=== PATIENT | female | born 1945 | race Hispanic/Latino ===

== ENCOUNTER 2019-06-14 03:15 | Inpatient (IN) | payer MEDICARE ==
[2019-06-14] VITALS (9 sets, daily range): BP systolic 125–167; BP diastolic 65–81
[~2019-06-14] VITALS: Ht 152.4 cm; Wt 66.7 kg
[2019-06-14] MEDS ORDERED: ASPIRIN 81 MG CHEW TAB PO ONE ×2 (03:30→04:45)
[2019-06-14] MEDS ORDERED: PANTOPRAZOLE 40 MG 10ML VIAL IV STA (03:37)
[2019-06-14] MEDS ORDERED: NITROGLYCERIN 2% OINT 1 GM PKT ONE (03:38)
[2019-06-14] MEDS ORDERED: ONDANSETRON HCL INJ 2MG/ML 2ML 2 MG/ML VIAL IV STA (03:39)
[2019-06-14] MEDS ORDERED: ONDANSETRON HCL INJ 2MG/ML 2ML 2 MG/ML VIAL ONE (03:39)
[2019-06-14 03:44] LABS: BASOPHILS % 0.3 % (0.0-1.0); EOSINOPHILS # (AUTO) 0.2 (0.0-0.4); EOSINOPHILS % 2.9 % (0.0-6.0); HEMATOCRIT 38.4 % (34.2-44.1); HEMOGLOBIN 12.6 g/dL (12.0-16.0); LYMPHOCYTES # (AUTO) 2.3 (1.0-3.2); LYMPHOCYTES % 31.5 % (18.0-39.1); MEAN CORPUSCULAR HEMOGLOBIN 30.8 pg (28-32); MEAN CORPUSCULAR HGB CONC 32.8 g/dL (31-35); MEAN CORPUSCULAR VOLUME 93.9 fL (81-99); MONOCYTES # (AUTO) 0.5 (0.2-0.8); MONOCYTES % 6.8 % (4.4-11.3); NEUTROPHILS # (AUTO) 4.3 (2.1-6.9); NEUTROPHILS % 58.2 % (38.7-80.0); PLATELET COUNT 220 x10e3/uL (140-360); RED BLOOD COUNT 4.09 x10e6/uL (3.6-5.1); RED CELL DISTRIBUTION WIDTH 12.2 % (11.7-14.4)
[2019-06-14] MEDS ORDERED: NITROGLYCERIN 2% OINT 1 GM PKT TOP ONE (03:45)
[2019-06-14] MEDS ORDERED: ASPIRIN 81 MG CHEW TAB ONE (03:46)
[2019-06-14] MEDS ORDERED: PANTOPRAZOLE 40 MG 10ML VIAL ONE (03:46)
[2019-06-14 03:58] LABS: INR 0.81; PROTHROMBIN TIME 11.6 seconds (11.9-14.5)
[2019-06-14 03:59] LABS: PARTIAL THROMBOPLASTIN TIME 25.8 seconds (23.8-35.5)
[2019-06-14 04:09] LABS: ALANINE AMINOTRANSFERASE 27 IU/L (0-55); ALBUMIN 3.7 g/dL (3.5-5.0); ALBUMIN/GLOBULIN RATIO 1.2 (0.8-2.0); ALKALINE PHOSPHATASE 72 IU/L (40-150); ANION GAP 14.4 mmol/L (8-16); BLOOD UREA NITROGEN 22 mg/dL (7-26); BUN/CREATININE RATIO 28 (6-25); CARBON DIOXIDE 23 mmol/L (22-29); CHLORIDE 105 mmol/L (98-107); CREATINE KINASE 50 IU/L (29-168); CREATININE, SERUM 0.78 mg/dL (0.57-1.11); EST GLOMERULAR FILTRATION RATE > 60 ML/MIN (60-); GLUCOSE 111 mg/dL (74-118); POTASSIUM 3.4 mmol/L (3.5-5.1); SODIUM 139 mmol/L (136-145)
[2019-06-14 04:10] LABS: AMYLASE 73 U/L (25-125); LIPASE 40 U/L (8-78)
[2019-06-14] MEDS ORDERED: HEPARIN SOD (PORCINE) 5,000 UNIT/ML VIAL IV ONE (04:15)
[2019-06-14] MEDS ORDERED: HEPARIN 25,000 UNIT 600 UNIT in DEXTROSE 5% 250ML 250 ML IV SCH ×2 (04:15→06:00)
[2019-06-14 04:34] LABS: CREATINE KINASE MB < 1.00 ng/mL (0-4.3)
[2019-06-14] MEDS: FAMOTIDINE 20 MG/2 ML VIAL IV SCH ×2 (04:45→17:26)
[2019-06-14] MEDS ORDERED: NITROGLYCERIN 0.4 MG SUBL SL PRN (04:45)
[2019-06-14] MEDS ORDERED: SODIUM CHLORIDE FLUSH 10 ML SYR INJ PRN (04:45)
--- NOTE | 2019-06-14 05:13 | Diagnostic Imaging Report ---
EXAMINATION: CHEST SINGLE (PORTABLE) INDICATION: Chest pain COMPARISON: None FINDINGS: AP view TUBES and LINES: None. LUNGS: Lungs are well inflated. Lungs are clear. There is no evidence of pneumonia or pulmonary edema. PLEURA: No pleural effusion or pneumothorax. HEART AND MEDIASTINUM: The cardiomediastinal silhouette is unremarkable. BONES AND SOFT TISSUES: No acute osseous lesion. Soft tissues are unremarkable. Degenerative changes in the shoulders and spine. UPPER ABDOMEN: No free air under the diaphragm. IMPRESSION: No acute thoracic radiographic abnormality. Signed by: Sami Duff DO on 06/14/2019 5:09 AM
[2019-06-14] MEDS ORDERED: HEPARIN 25,000 UNIT DRIP IV ONE (06:05)
[2019-06-14] MEDS: ASPIRIN 81 MG ENTERIC COATED PO SCH (06:20)
--- NOTE | 2019-06-14 06:30 | NUR ---
RECEIVED PATIENT FROM EMERGENCY ROOM PER STRETCHER, HEPARIN INFUSING AT 6UNITS PER HOUR, CALL LIGHT IN REACH. WILL CONTINUE TO MONITOR.
--- NOTE | 2019-06-14 07:16 | NUR ---
REPORT GIVEN TO AM NURSE.
[2019-06-14] MEDS ORDERED: POTASSIUM CHLORIDE 20 MEQ TAB CR PO STA (11:21)
[2019-06-14] MEDS ORDERED: REGADENOSON 0.4 MG/5 ML SYR IV ONE ×2 (12:27→12:40)
--- NOTE | 2019-06-14 12:46 | History and Physical ---
REPORT TITLE: Cardiac Consultation BODY AFTER REPORT TITLE: REASON FOR CONSULTATION: Chest pain. HISTORY: This is a 73-year-old lady, who is known with longstanding history of hypercholesteremia, on treatment. Yesterday, she had heavy dinner and after that she started having severe lower retrosternal chest pain associated with nausea, she vomited one. The chest pain was sharp, but also colicky in nature. The chest pain was very severe. She came to the emergency room. Her EKG showed left bundle branch block with first-degree AV block, admitted for further management, started on heparin, aspirin, and cardiac consultation is obtained. I visited with the patient and her daughter at bedside. In fact, the daughter who is the one who helped me talking to her mother. The patient is relatively active. She still does work and with activity she does have some shortness of breath, but no chest tightness. Of note, the patient is very poor historian. There is no prior cardiac disease, although her brother had stent and her mother of congestive heart failure. She does have easy fatigability and shortness of breath on exertion. There is no orthopnea, no paroxysmal nocturnal dyspnea, however, easy fatigability and shortness of breath on exertion relieved by rest. There is no syncope or presyncope. REVIEW OF SYSTEMS: Extensive to all systems, will be summarized for clarity. GENERAL: No fever, no chills. HEENT: No vision problem. No hearing problem. PULMONARY: No cough. No hemoptysis. CARDIAC: As per acute illness. GI: As per acute illness. No hematemesis. No melena. : No hematuria. No dysuria. MUSCULOSKELETAL: No pain. No aches. ENDOCRINE: No diabetes mellitus. HEMATOLOGY: No easy bruising or bleeding. SOCIAL HISTORY: She lives with her son whom she is really truly taking care of him, he had stroke. She is nonsmoker and non-alcohol drinker. She is a . MEDICATIONS: Home medications are atorvastatin 20 mg a day and bupropion 150 mg twice a day. ALLERGIES: NONE. PAST MEDICAL HISTORY: 1. Appendectomy. 2. Hysterectomy. 3. Left hand fracture and surgery x3. 4. Depression. 5. Hyperlipidemia. FAMILY HISTORY: Father at age 72 with leukemia. Mother of complication of congestive heart failure, but at age 86, she was diabetic. One brother already with stent in his 60s. Two healthy sisters. Two sons, one of the sons with CVA. Two healthy daughters. PHYSICAL EXAMINATION: GENERAL: Well-built lady, in no acute distress, pain disappeared having heparin drip. VITAL SIGNS: Height of 5 feet 2 inches, weight of 135 pounds, blood pressure 130/70, heart rate of 60, respiratory rate of 18. HEENT: Pupils are equal and reactive. NECK: No elevation of jugular venous pulsation. CHEST: Clear to auscultation and percussion. Heart: PMI 5th left intercostal space. Normal first and second heart sounds. ABDOMEN: Soft with good bowel sounds. No organomegaly. No abdominal bruit. Mild tenderness noted in the lower abdomen and right lower quadrant. Bowel sounds are present. No abdominal bruit. EXTREMITIES: No cyanosis, no clubbing, no edema. No signs of deep venous thrombosis. Good distal pulses. There is a little bit of left hand deformity, decreased left radial pulse. NEUROLOGIC: Awake, alert, oriented, and nonfocal. LABORATORY DATA: Sodium of 139, potassium 3.4, BUN 22, creatinine of 0.8. INR of 0.8, glucose of 111. Chest x-ray by report normal. EKG showing normal sinus rhythm, first-degree AV block, left bundle branch block. IMPRESSION AND PLAN: 1. Chest pain was typical, but more atypical characteristic. 2. Hypercholesteremia. 3. Left bundle branch block. 4. Positive family history of coronary artery disease. Cardiac ewing recommendation serial cardiac enzymes, schedule patient for nuclear stress test in view of the presence of left bundle branch block on the EKG if cardiac enzymes are negative. Workup and management discussed with the patient and her family. Questions are answered. MD TREVA Greenwood/JESSE /[id number]
--- NOTE | 2019-06-14 13:50 | NUR ---
Visit made by the Spiritual Care Department Pastoral Visitor, Kay Hancock. PV provided pastoral presence, prayer, hospitality, and supportive listening. Pastoral Visitor informed pt/family of the scope of [employer] and availability. PAPA GALAVIZ Social Science Instructor Spiritual Care Department O: [phone] Pager: [phone] ([phone] number calling from)
--- NOTE | 2019-06-14 14:42 | Diagnostic Imaging Report ---
EXAM: Right upper quadrant abdominal ultrasound INDICATION: Right upper quadrant pain COMPARISON: None. TECHNIQUE: Transverse and longitudinal images of the right upper quadrant abdomen were obtained FINDINGS: Liver: Size: 14.9 cm in the right midclavicular line, normal Appearance: Normal echogenicity, smooth contour Mass: No focal masses Gallbladder: 7 mm and 13 mm gallstones within the gallbladder. No gallbladder wall thickening, pericholecystic fluid, or gallbladder distention. Negative reported sonographic Zepeda's sign. Gallbladder wall measures 2 mm . Bile Ducts: Intrahepatic Ducts: No dilatation Extrahepatic Ducts: Common bile duct measures 3 mm, no dilatation Pancreas: Visualized portions of the pancreatic head, neck and proximal body are normal. Kidney: The right kidney measures 9.8 cm without evidence of hydronephrosis or stone. Vessels: Aorta: Visualized portions are normal Inferior Vena Cava: Visualized portions are normal Main Portal Vein: 0.9 cm, normal size with hepatopetal flow. Free Fluid: No ascites or pleural effusion IMPRESSION: Cholelithiasis. No specific sonographic evidence of cholecystitis. Signed by: Fady Walton MD on 06/14/2019 2:39 PM
[2019-06-14] MEDS ORDERED: POTASSIUM CHLORIDE 20 MEQ TAB CR PO NR (14:45)
[2019-06-14] MEDS: AMLODIPINE BESYLATE 5 MG TAB PO SCH (14:53)
[2019-06-14 15:22] LABS: CREATINE KINASE 43 IU/L (29-168)
--- NOTE | 2019-06-14 18:03 | History and Physical ---
HISTORY OF PRESENT ILLNESS: The patient is a 73-year-old female with past medical history positive for hypertension. The patient is admitted to the hospital because of chest pain. REVIEW OF SYSTEMS: CARDIOVASCULAR: Chest pain. No shortness of breath. RESPIRATORY: No shortness of breath. No cough. GASTROINTESTINAL: No nausea or vomiting. No diarrhea. GENITOURINARY: No frequency or dysuria. ALLERGIES: NOT ALLERGIC TO ANYTHING. PAST MEDICAL HISTORY: Only positive for hypertension. SOCIAL HISTORY: She does not smoke. She does not drink. PHYSICAL EXAMINATION: VITAL SIGNS: Blood pressure 167/81, temperature is 96.4, heart rate 67 per minute, respiratory rate 18 per minute, O2 saturation 99%. HEART: Showed regular rhythm. Normal S1, S2 sound. LUNGS: Clear bilaterally. ABDOMEN: Soft. EXTREMITIES: Show no evidence of cyanosis or hematoma. LABORATORY DATA: On the blood work, we have a PT 11.6, INR 0.81, PTT 25.8. On the CBC; white blood count 7.36, hematocrit 38.4, hemoglobin 12.6, platelet count 220,000. On the CMP; sodium 139, potassium 3.4, chloride 105, CO2 of 23, BUN 22, creatinine 0.78, glucose 111, calcium 9.0, total bilirubin 0.1, AST 54, ALT 27, alkaline phosphatase 72, creatine kinase 56, CK-MB 1.00. Troponin x2 is negative. Total protein 6.8, albumin 3.7, globulin 3.1, albumin globin ratio 1.2. Chest x-ray is negative for any significant cardiopulmonary abnormalities. IMPRESSION: 1. Episode of chest pain. 2. Hypertension. 3. Hypokalemia. 4. Elevated LFTs. PLAN OF TREATMENT: The patient is on heparin drip. She is taking aspirin 81 mg daily. She is taking Pepcid 20 mg IV twice a day. She is taking morphine 2 mg IV q.3 hours as needed for [id number] pain. She is taking also a nitroglycerin 0.4 mg sublingual q.5 minutes for chest pain no more than three doses, Zofran 4 mg IV q.4 hours as needed for nausea and vomiting. Cardiology consult Dr. Rosales. He is going to do an adenosine Cardiolite stress test today and then we will go from there. Potassium has been replaced with 40 mEq p.o. x1. I am going to repeat a BMP, magnesium levels tomorrow. Repeat LFTs tomorrow. MD DM Howell/JESSE /[id number]
--- NOTE | 2019-06-14 19:35 | Myoview Stress Test ---
DATE OF STUDY: 06/14/2019 10:17:00 Stress Test - Treadmill ONLY TITLE OF REPORT: Lexiscan nuclear stress test. INDICATION FOR STUDY: Chest pain and abnormal EKG. TECHNICAL DETAILS: After risks, benefits, pros and cons of Lexiscan nuclear stress test were explained to the patient, the patient agreed to proceed. She was brought down to the nuclear lab, where she received an 11 millicurie dose of technetium-99m tetrofosmin intravenously and after 40 minutes, the patient was taken to the [facility] SPECT camera for resting myocardial perfusion imaging. Afterwards, the patient was then brought to the stress lab, where 12-lead EKG monitoring and blood pressure monitoring were obtained. She received a dose of Lexiscan 0.4 mg intravenously followed by a 33 millicurie dose of technetium-99m tetrofosmin intravenously. Resting heart rate went from a baseline of 64 beats per minute to a maximum of 78 beats per minute, and blood pressure went from a baseline of 146/71 to 133/57, which is an appropriate hemodynamic response. Underlying EKG revealed normal sinus rhythm, nonspecific intraventricular conduction block and nonspecific ST-T wave changes. With Lexiscan infusion, there were no ischemic EKG changes or symptoms. After 25 minutes, the patient was then taken to the SPECT camera for stress myocardial perfusion imaging. FINDINGS: 1. Resting myocardial perfusion imaging reveals normal tracer uptake. 2. Stress myocardial perfusion imaging reveals normal tracer uptake. 3. The following gated measurements were obtained. End-diastolic volume was 54 mm, end-systolic volume 14 mm, calculated left ventricular ejection fraction is 74% with normal wall motion. CONCLUSIONS: 1. Normal myocardial perfusion imaging study revealing normal tracer uptake and no scintigraphic areas of ischemia. 2. Normal left ventricular function with calculated ejection fraction of 74%. 3. Overall findings of the stress test are compatible with a low risk stress test. MD PABLO Chau/JESSE /[id number]
[2019-06-14 20:26] LABS: CREATINE KINASE 36 IU/L (29-168)
[2019-06-15] MEDS: FAMOTIDINE 20 MG/2 ML VIAL IV SCH ×2 (03:47→17:12)
[2019-06-15 04:00] VITALS: BP 152/68
[2019-06-15 05:21] LABS: ANION GAP 12.4 mmol/L (8-16); BLOOD UREA NITROGEN 19 mg/dL (7-26); BUN/CREATININE RATIO 22 (6-25); CALCIUM 9.5 mg/dL (8.4-10.2); CARBON DIOXIDE 25 mmol/L (22-29); CHLORIDE 106 mmol/L (98-107); CREATININE, SERUM 0.87 mg/dL (0.57-1.11); EST GLOMERULAR FILTRATION RATE > 60 ML/MIN (60-); GLUCOSE 105 mg/dL (74-118); POTASSIUM 4.4 mmol/L (3.5-5.1); SODIUM 139 mmol/L (136-145)
[2019-06-15 05:48] LABS: CHOL/HDL RATIO 3.6 (3.0-3.6)
[2019-06-15 07:26] VITALS: BP 113/69
[2019-06-15] MEDS ORDERED: ACETAMINOPHEN 325 MG TAB PO PRN (09:30)
[2019-06-15] MEDS: ASPIRIN 81 MG ENTERIC COATED PO SCH (09:34)
[2019-06-15] MEDS: AMLODIPINE BESYLATE 5 MG TAB PO SCH (09:34)
[2019-06-15 10:02] LABS: ALBUMIN 3.6 g/dL (3.5-5.0); BILIRUBIN,DIRECT 0.1 mg/dL (0.0-0.5)
--- NOTE | 2019-06-15 11:10 | NUR ---
ASSESSMENT: Spiritual concern Pt worried about her daughter. Pt's daughter at bedside. Pt requested prayer and prayer cards. Intervention: Provided empathic listening and prayer. Outcome: Pt & daughter expressed appreciation for visit. Will follow as able. PAPA GALAVIZ Cloth Covered Helmet Puller Spiritual Care Department O: [phone] Pager: [phone] ([phone] number calling from)
[2019-06-15 11:20] VITALS: BP 165/88
--- NOTE | 2019-06-15 11:35 | Progress Note ---
DATE: Internal Medicine Progress Note SUBJECTIVE: The patient had a normal adenosine Cardiolite stress test with no evidence of ischemia, but the patient has been having right upper quadrant pain with nausea, abdominal distention after she eats. Bladder ultrasound ordered by Dr. Charles showed gallstones, which are symptomatic. Also, we are going to call Dr. Don Shahid, surgeon, to do evaluation for a possible laparoscopic cholecystectomy. PHYSICAL EXAMINATION: HEART: Showed regular rhythm, normal S1, S2 sound. LUNGS: Clear bilaterally. ABDOMEN: Soft. EXTREMITIES: Show no evidence of cyanosis or hematoma. IMPRESSION: 1. Chest pain. 2. Hypertension. 3. Hypokalemia. 4. Elevated LFTs. 5. Acute cholecystitis. PLAN OF TREATMENT: Continue with current medication regimen. We are going to continue pain management. Continue monitoring liver function test. We are going to get a surgical consult with Dr. Don Shahid for possible cholecystectomy. MD DM Howell/JESSE /[id number]
[2019-06-15] MEDS: MORPHINE SULFATE 2 MG/ML SYR 1ML IV PRN ×3 (13:46→23:06)
[2019-06-15 15:25] VITALS: BP 119/65
[2019-06-15] MEDS: PIPER-TAZ 3.375 GM 50 ML IV SCH ×2 (18:29→23:30)
[2019-06-15] MEDS: SODIUM CHLORIDE 0.9% 1000ML 1,000 ML IV SCH (18:29)
[2019-06-15] MEDS: PANTOPRAZOLE 40 MG 10ML VIAL IV SCH (18:29)
[2019-06-15 20:00] VITALS: BP 118/73
--- NOTE | 2019-06-15 21:10 | NUR ---
received report from night nurse. patient is resting comfortably in the bed. bed is in the lowest position and call light is within reach. will continue to monitor patient.
[2019-06-15 21:30] VITALS: BP 118/73
[2019-06-15] MEDS: ONDANSETRON HCL INJ 2MG/ML 2ML 2 MG/ML VIAL IV PRN (23:07)
[2019-06-16] VITALS: BP 124/70
[2019-06-16 04:00] VITALS: BP 143/70
[2019-06-16] MEDS: FAMOTIDINE 20 MG/2 ML VIAL IV SCH ×2 (05:11→18:02)
[2019-06-16] MEDS: PIPER-TAZ 3.375 GM 50 ML IV SCH ×4 (05:11→23:30)
[2019-06-16] MEDS: SODIUM CHLORIDE 0.9% 1000ML 1,000 ML IV SCH ×2 (05:11→14:02)
[2019-06-16 05:47] LABS: BASOPHILS % 0.4 % (0.0-1.0); EOSINOPHILS # (AUTO) 0.2 (0.0-0.4); EOSINOPHILS % 3.2 % (0.0-6.0); HEMATOCRIT 38.7 % (34.2-44.1); HEMOGLOBIN 12.5 g/dL (12.0-16.0); LYMPHOCYTES # (AUTO) 2.2 (1.0-3.2); LYMPHOCYTES % 37.7 % (18.0-39.1); MEAN CORPUSCULAR HEMOGLOBIN 30.5 pg (28-32); MEAN CORPUSCULAR HGB CONC 32.3 g/dL (31-35); MEAN CORPUSCULAR VOLUME 94.4 fL (81-99); MONOCYTES # (AUTO) 0.4 (0.2-0.8); MONOCYTES % 7.5 % (4.4-11.3); NEUTROPHILS # (AUTO) 2.9 (2.1-6.9); NEUTROPHILS % 50.8 % (38.7-80.0); PLATELET COUNT 222 x10e3/uL (140-360); RED CELL DISTRIBUTION WIDTH 12.2 % (11.7-14.4)
[2019-06-16 06:06] LABS: ALANINE AMINOTRANSFERASE 119 IU/L (0-55); ALBUMIN 3.3 g/dL (3.5-5.0); ALBUMIN/GLOBULIN RATIO 1.1 (0.8-2.0); ALKALINE PHOSPHATASE 69 IU/L (40-150); AMYLASE 70 U/L (25-125); ANION GAP 13.7 mmol/L (8-16); BLOOD UREA NITROGEN 14 mg/dL (7-26); BUN/CREATININE RATIO 18 (6-25); CALCIUM 8.9 mg/dL (8.4-10.2); CARBON DIOXIDE 25 mmol/L (22-29); CHLORIDE 104 mmol/L (98-107); CREATININE, SERUM 0.78 mg/dL (0.57-1.11); EST GLOMERULAR FILTRATION RATE > 60 ML/MIN (60-); GLUCOSE 91 mg/dL (74-118); POTASSIUM 4.7 mmol/L (3.5-5.1); SODIUM 138 mmol/L (136-145)
--- NOTE | 2019-06-16 07:08 | NUR ---
report given to day nurse. patient is resting comfortably in bed. bed is in lowest position and call martinez is within reach.
[2019-06-16 07:37] VITALS: BP 136/79
[2019-06-16] MEDS: ASPIRIN 81 MG ENTERIC COATED PO SCH (08:44)
[2019-06-16] MEDS: AMLODIPINE BESYLATE 5 MG TAB PO SCH (08:45)
--- NOTE | 2019-06-16 09:30 | NUR ---
ASSESSMENT: No concerns expressed Pt's alteration manager at bedside. Intervention: Provided roman catholic literature per request. Outcome: Pt expressed appreciation for visit. No need to follow at this time. PAPA GALAVIZ Environmental Protection Inspector Spiritual Care Department O: [phone] Pager: [phone] ([phone] number calling from)
[2019-06-16] MEDS ORDERED: GADOBENATE DIMEGLUMINE 0 ML IV ONE (09:37)
[2019-06-16 11:31] VITALS: BP 162/87
[2019-06-16] MEDS ORDERED: BUPIVACAINE 0.5%/EPI 30 ML SDV INJ ONE (13:23)
[2019-06-16] MEDS ORDERED: ACETAMINOPHEN 1000 MG/100 ML 100 ML IV ONE (14:33)
[2019-06-16 16:00] VITALS: BP 123/71
[2019-06-16] MEDS ORDERED: ONDANSETRON HCL INJ 2MG/ML 2ML 2 MG/ML VIAL ONE ×2 (16:00→19:54)
[2019-06-16] MEDS: PANTOPRAZOLE 40 MG 10ML VIAL IV SCH (18:02)
[2019-06-16] MEDS: ONDANSETRON HCL INJ 2MG/ML 2ML 2 MG/ML VIAL IV PRN (18:02)
[2019-06-16] MEDS: MORPHINE SULFATE 2 MG/ML SYR 1ML IV PRN ×2 (18:37→23:35)
--- NOTE | 2019-06-16 19:25 | NUR ---
Received report from day nurse. patient is resting comfortably in bed. bed is in lowest position and call martinez is within reach. will continue to monitor patient.
[2019-06-16] MEDS ORDERED: FENTANYL CITRATE/PF 100MCG/2 ML INJ ONE (19:42)
[2019-06-16] MEDS ORDERED: SEVOFLURANE INHAL SOLN 250 ML PEN BTL ONE (19:54)
[2019-06-16] MEDS ORDERED: KETOROLAC TROMETHAMINE 30 MG/ML VIAL ONE (19:54)
[2019-06-16] MEDS ORDERED: LIDOCAINE HCL 2% LOCAL INJ 5 ML SDV VIAL INJ ONE (19:54)
[2019-06-16] MEDS ORDERED: ROCURONIUM BROMIDE 10 MG/ML 5ML VIAL ONE (19:54)
[2019-06-16] MEDS ORDERED: NEOSTIGMINE 5 MG/5ML SYR ONE (19:54)
[2019-06-16] MEDS ORDERED: PROPOFOL IV EMULSION 10 MG/ML 20 ML VIAL ONE (19:54)
[2019-06-16] MEDS ORDERED: GLYCOPYRROLATE INJ 1MG/ 5 ML SYR ONE (19:54)
[2019-06-16 20:00] VITALS: BP 127/59
--- NOTE | 2019-06-16 21:15 | Operative Report ---
DATE OF PROCEDURE: 06/16/2019 SURGEON: Milad Shahid MD PREOPERATIVE DIAGNOSES: Cholecystitis and cholelithiasis. POSTOPERATIVE DIAGNOSES: Cholecystitis and cholelithiasis. OPERATION PERFORMED: Laparoscopic cholecystectomy. LOG LOADER HELPER: TYLER Armenta. ANESTHESIA: General endotracheal. COMPLICATIONS: None. ESTIMATED BLOOD LOSS: Minimal. DESCRIPTION OF PROCEDURE: With the patient lying in bed in the supine position under good general endotracheal anesthesia, the abdomen was prepped with Betadine solution and draped in the usual manner. A Veress needle was introduced into the right upper quadrant and pneumoperitoneum was established without any difficulty. A 5 mm trocar was placed in the right subcostal region and a 5 mm video laparoscope was placed into the intraabdominal cavity. Video laparoscopy at this point revealed some adhesions to the lower abdomen, but the subumbilical space was clear. An 11 mm trocar was placed into the umbilicus and a 10 mm video laparoscope was placed into the intraabdominal cavity. Laparoscopy at this point revealed a tensely distended gallbladder showing signs of cholesterolosis. The rest of the abdominal exploration was otherwise within normal limits. The peritoneum overlying the neck of the gallbladder was then opened and the cystic duct was identified. The cystic duct was followed to its junction with the common duct. The cystic duct was normal in caliber as was the common duct. The cystic duct was then circumferentially dissected away from the common duct, doubly clipped and divided. The cystic artery was similarly doubly clipped and divided. The gallbladder was then slowly and carefully taken off the liver bed using the cautery scissors and perfect hemostasis was ascertained. The gallbladder was then grasped through the umbilical port and removed without any difficulty. Video laparoscopy was then again carried out. The liver bed was found to be perfectly dry. All the excess fluid was aspirated. The pneumoperitoneum was evacuated and all the trocars were removed under direct vision. The midline fascia at the umbilicus was then closed with a qzocuz-aj-ycych of 0 Vicryl. All layers were infiltrated on the way out with solution of 0.25% Marcaine. Subcutaneous tissue was approximated with 3-0 Vicryl and the skin was closed with subcuticular 5-0 Vicryl. Benzoin, Steri-Strips and Band-Aids were applied. The sponge, lap, and needle counts were correct. The patient tolerated the procedure well and returned to the recovery room in stable condition. MD EPIFANIO Reynoso/JESSE /[id number]
[2019-06-17] VITALS (8 sets, daily range): BP systolic 141–157; BP diastolic 67–85
[2019-06-17] MEDS: SODIUM CHLORIDE 0.9% 1000ML 1,000 ML IV SCH ×3 (00:02→19:39)
[2019-06-17] MEDS ORDERED: PROMETHAZINE 12.5MG/ NACL 0.9% 12.5 MG/50 ML BAG IV PRN (01:00)
[2019-06-17 05:05] LABS: BASOPHILS % 0.1 % (0.0-1.0); EOSINOPHILS # (AUTO) 0.1 (0.0-0.4); HEMATOCRIT 34.9 % (34.2-44.1); HEMOGLOBIN 11.6 g/dL (12.0-16.0); LYMPHOCYTES # (AUTO) 2.3 (1.0-3.2); LYMPHOCYTES % 32.2 % (18.0-39.1); MEAN CORPUSCULAR HEMOGLOBIN 30.9 pg (28-32); MEAN CORPUSCULAR HGB CONC 33.2 g/dL (31-35); MEAN CORPUSCULAR VOLUME 92.8 fL (81-99); MONOCYTES # (AUTO) 0.4 (0.2-0.8); MONOCYTES % 5.8 % (4.4-11.3); NEUTROPHILS # (AUTO) 4.2 (2.1-6.9); NEUTROPHILS % 59.6 % (38.7-80.0); PLATELET COUNT 208 x10e3/uL (140-360); RED BLOOD COUNT 3.76 x10e6/uL (3.6-5.1); RED CELL DISTRIBUTION WIDTH 12.7 % (11.7-14.4)
[2019-06-17] MEDS: FAMOTIDINE 20 MG/2 ML VIAL IV SCH ×2 (05:15→17:41)
[2019-06-17] MEDS: PIPER-TAZ 3.375 GM 50 ML IV SCH ×4 (05:15→23:05)
[2019-06-17 05:25] LABS: ALANINE AMINOTRANSFERASE 99 IU/L (0-55); ALBUMIN 3.1 g/dL (3.5-5.0); ALBUMIN/GLOBULIN RATIO 1.1 (0.8-2.0); ALKALINE PHOSPHATASE 67 IU/L (40-150); ANION GAP 12.9 mmol/L (8-16); BLOOD UREA NITROGEN 12 mg/dL (7-26); BUN/CREATININE RATIO 16 (6-25); CALCIUM 8.2 mg/dL (8.4-10.2); CARBON DIOXIDE 21 mmol/L (22-29); CHLORIDE 109 mmol/L (98-107); CREATININE, SERUM 0.77 mg/dL (0.57-1.11); EST GLOMERULAR FILTRATION RATE > 60 ML/MIN (60-); GLUCOSE 98 mg/dL (74-118); POTASSIUM 3.9 mmol/L (3.5-5.1); SODIUM 139 mmol/L (136-145)
[2019-06-17] MEDS: MORPHINE SULFATE 2 MG/ML SYR 1ML IV PRN ×2 (05:26→11:28)
[2019-06-17] MEDS: AMLODIPINE BESYLATE 5 MG TAB PO SCH (10:01)
--- NOTE | 2019-06-17 11:48 | Progress Note ---
DATE: Internal Medicine Progress Note The patient is doing well. She is status post cholecystectomy, complaining of mild abdominal pain. OBJECTIVE: VITAL SIGNS: Blood pressure 149/78, temperature 96.7, heart rate 59 per minute, respiratory rate 20 per minute, oxygen saturation 99%. ABDOMEN: Soft, slightly tender on the incision site. LABORATORY DATA: On the BMP; sodium 139, potassium 3.9, chloride 109, CO2 of 21, BUN 12, creatinine 0.77, glucose 98. On the CBC; white count 7.02, hemoglobin 11.6, hematocrit 34.9, platelet count 208,000, PT is 11.6, PTT 25.6, INR 0.81. AST 60, ALT 99, total bilirubin 0.4, alkaline phosphatase 67. FINAL IMPRESSION: 1. Acute cholecystitis, status post cholecystectomy. 2. Hypertension. 3. Elevated liver function tests. PLAN OF TREATMENT: Continue Zosyn 3.375 g IV q.6 hours, normal saline at 100 mL an hour, Pepcid 20 mg twice a day, amlodipine 5 mg daily, promethazine 12.5 mg IV q.6 hours as needed, Zofran 4 mg IV q.4 hours as needed, Tylenol 325 mg q.4 hours as needed for pain and fever, Protonix 40 mg once a day, morphine 2 mg IV q.3 hours as needed, and [place] 1 tab q.4 hours as needed. We are going to repeat a liver function test tomorrow. Dr. Read will be covering for me tomorrow. Upgrade diet as tolerated. Continue physical therapy. MD DM Howell/JESSE /[id number]
--- NOTE | 2019-06-17 13:37 | NUR ---
WOUND CARE SCREENING DONE 73 YO FEMALE R/T 16 MAIRA SCORE NO ABNORMAL FINDINGS NOTED DURING TOTAL SKIN ASSESSMENT NURSING CONTINUES TO ASSIST PATIENT TO TURN AND OFFLOAD NURSING CONTINUES TO MAINTAIN MODERATE PUP INTERVENTIONS AND VISCO SURFACE NURSING TO CONSULT WOUND CARE FOR ANY FUTURE SKIN CARE OR INTERVENTION NEEDS Addendum: 06/17/19 at 1339 by Jeramy Russ RN Amended: Links added.
[2019-06-17] MEDS: HYDROCODONE/APAP 7.5MG-325MG 1 EA TAB PO PRN (16:26)
[2019-06-17] MEDS: PANTOPRAZOLE 40 MG 10ML VIAL IV SCH (17:41)
[2019-06-18] VITALS: BP 123/63
[2019-06-18 00:22] VITALS: BP 123/63
[2019-06-18] MEDS: HYDROCODONE/APAP 7.5MG-325MG 1 EA TAB PO PRN ×2 (02:42→08:25)
[2019-06-18] MEDS: FAMOTIDINE 20 MG/2 ML VIAL IV SCH (02:43)
[2019-06-18 04:00] VITALS: BP 165/83
[2019-06-18] MEDS: SODIUM CHLORIDE 0.9% 1000ML 1,000 ML IV SCH (04:30)
[2019-06-18] MEDS: PIPER-TAZ 3.375 GM 50 ML IV SCH ×2 (05:03→11:58)
[2019-06-18 05:42] LABS: BILIRUBIN,DIRECT 0.2 mg/dL (0.0-0.5)
[2019-06-18 08:15] VITALS: BP 157/77
[2019-06-18 08:25] VITALS: BP 157/77
[2019-06-18] MEDS: AMLODIPINE BESYLATE 5 MG TAB PO SCH (08:25)
[2019-06-18] MEDS ORDERED: TYLENOL WITH C1 EACH PO (11:28)
[2019-06-18] MEDS ORDERED: KEFLEX500 MG PO (11:29)
[2019-06-18 11:51] VITALS: BP 130/77
--- NOTE | 2019-06-18 12:34 | NUR ---
EDUCATED ABOUT IMM, SIGNED, FILED IN CHART, WITH COPY LEFT WITH FAMILY AT BEDSIDE.
--- NOTE | 2019-06-18 13:04 | Discharge Summary ---
ADMITTING DIAGNOSES: 1. Acute cholecystitis. 2. Hyperlipidemia. 3. Elevated hepatic transaminases. DISCHARGE DIAGNOSES: 1. Status post laparoscopic cholecystectomy because of cholecystitis. 2. Elevated hepatic transaminases, resolving. 3. Left bundle-branch block. 4. Hyperlipidemia. HOSPITAL COURSE: This is a 73-year-old woman, who was initially admitted to [facility] with diagnosis of acute cholecystitis. During this hospitalization, she was seen by director of dietary namely Dr. Jordana Rosales, who cleared her for gallbladder surgery after undergoing echocardiogram and nuclear stress test. The results of the echocardiogram revealed a preserved left ventricular ejection fraction of 55% to 70%. The patient's stress test was also normal. The patient underwent successful laparoscopic cholecystectomy that was performed by Dr. Milad Shahid. The patient's brief hospitalization was unremarkable. During this hospitalization, the patient's AST and ALT got as high as 113 and 119 respectively. On the day of discharge, her AST and ALT were 47 and 80 respectively. The decision was made to hold the patient's lipid-lowering agent namely a statin during this hospitalization because of elevated hepatic transaminases. The patient's brief hospitalization was unremarkable. On discharge, she was tolerating a regular diet. DISCHARGE MEDICATIONS: 1. Tylenol No.3 one pill every 4 hours p.r.n. pain, 20 prescribed, no refills. 2. Keflex 500 mg t.i.d. for 5 days, no refills. 3. [place]-3 fish oil daily. 4. Multivitamin daily. Once again, the patient was instructed to hold statin therapy until further notice from her primary care physician. FOLLOWUP INSTRUCTIONS: The patient instructed to follow up with Dr. Milad Shahid in [address] Larry Wells, her primary care physician in 2 weeks. MD RUTH Villareal/JESSE /[id number] cc: MD Milad Howell MD Ahmad M Jeroudi, MD MTDD
--- NOTE | 2019-06-18 14:00 | NUR ---
PATIENT ALERT AND ORIENTED, DISCHARGE INSTRUCTIONS GIVEN AT THIS TIME AND PATIENT VERBALIZED UNDERSTANDING. IV DISCONTINUED, CATHETER IN TACT AND SMALL DRESSING APPLIED. PATIENT TO BE WHEELED OUT TO PERSONAL AUTO FOR DAUGHTER TO DRIVE HOME.
== END 2019-06-18 14:30 | disposition home or self-care (01) | DRG 419 ==
LOC: ER 03:15 → ERHOLD 04:51 → IMCU 06:22 → OBSVTOIN 06-15 18:02
PROVIDERS: ADMIT Internal Medicine; ATTEND Internal Medicine
PROC: 0FT44ZZ Resection of Gallbladder, Percutaneous Endoscopic Approach (ICD-10-PCS; principal; 2019-06-16 13:00)
DX: K80.00 Calculus of gallbladder with acute cholecystitis without obstruction (principal); E87.6 Hypokalemia; E78.5 Hyperlipidemia, unspecified; F32.9 Major depressive disorder, single episode, unspecified; K21.9 Gastro-esophageal reflux disease without esophagitis; E78.00 Pure hypercholesterolemia, unspecified; R07.89 Other chest pain; I44.7 Left bundle-branch block, unspecified; I10 Essential (primary) hypertension
CPT/HCPCS: 36415; 71045; 76705; 78452; 80048; 80053; 80061; 80076; 82150; 82550; 82553; 83036; 83690; 83735; 84443; 84484; 85025; 85610; 85730; 87086; 88304; 93005; 93017; 93306; 96374; 96375; 99284; A9502; C1766; G0378; J1644; J1885; J2001; J2270; J2405; J2543; J2550; J3010; J7030

== ENCOUNTER → 2020-09-20 | Outpatient (CLI) | payer MEDICARE ==
[~2020-09-20] MED LIST: KEFLEX500 MG PO; TYLENOL WITH C1 EACH PO
== END ==
LOC: MAMMO 11:45
PROVIDERS: ATTEND Internal Medicine
DX: Z12.31 Encounter for screening mammogram for malignant neoplasm of breast (principal); M81.0 Age-related osteoporosis without current pathological fracture; M89.9 Disorder of bone, unspecified
CPT/HCPCS: 77067; 77080

== ENCOUNTER → 2021-05-27 | Day surgery (SDC) | payer MEDICARE ==
[2021-05-24 08:40] LABS: BASOPHILS % 0.5 % (0.0-1.0); EOSINOPHILS # (AUTO) 0.2 (0.0-0.4); EOSINOPHILS % 3.3 % (0.0-6.0); HEMATOCRIT 41.7 % (34.2-44.1); HEMOGLOBIN 13.5 g/dL (12.0-16.0); LYMPHOCYTES # (AUTO) 2.2 (1.0-3.2); LYMPHOCYTES % 37.4 % (18.0-39.1); MEAN CORPUSCULAR HEMOGLOBIN 30.9 pg (28-32); MEAN CORPUSCULAR HGB CONC 32.4 g/dL (31-35); MEAN CORPUSCULAR VOLUME 95.4 fL (81-99); MONOCYTES # (AUTO) 0.4 (0.2-0.8); MONOCYTES % 6.7 % (4.4-11.3); NEUTROPHILS % 51.8 % (38.7-80.0); PLATELET COUNT 223 x10e3/uL (140-360); RED BLOOD COUNT 4.37 x10e6/uL (3.6-5.1); RED CELL DISTRIBUTION WIDTH 12.3 % (11.7-14.4)
[~2021-05-27] MED LIST changes: +ANXIETY MED PO; +BENTYL10 MG/1 ML PO; +BUSPIRONE HCL10 MG PO; +CHOLESTEROL MED PO
[2021-05-27 15:25] VITALS: BP 151/88
== END | disposition home or self-care (01) ==
LOC: OR 10:22
PROVIDERS: ATTEND Internal Medicine Gastroenterology
DX: K29.60 Other gastritis without bleeding (principal); D12.0 Benign neoplasm of cecum; K20.90 Esophagitis, unspecified without bleeding; K57.30 Diverticulosis of large intestine without perforation or abscess without bleeding; K64.8 Other hemorrhoids; I44.7 Left bundle-branch block, unspecified; R03.0 Elevated blood-pressure reading, without diagnosis of hypertension; F41.9 Anxiety disorder, unspecified; Z01.810 Encounter for preprocedural cardiovascular examination; Z01.812 Encounter for preprocedural laboratory examination; Z20.822 Contact with and (suspected) exposure to COVID-19; Z68.28 Body mass index [BMI] 28.0-28.9, adult
CPT/HCPCS: 36415; 43239; 45380; 85025; 93005; U0002; 45378

== ENCOUNTER → 2022-04-25 | Outpatient (CLI) | payer MEDICARE | LOC: MAMMO 11:49 | PROVIDERS: ATTEND Internal Medicine | DX: Z12.31 Encounter for screening mammogram for malignant neoplasm of breast (principal); M81.8 Other osteoporosis without current pathological fracture | CPT/HCPCS: 77067; 77080 ==

== ENCOUNTER 2022-07-05 16:15 | Emergency (ER) | payer MEDICARE, OTHER ==
[~2022-07-05] VITALS: Ht 152.4 cm; Wt 64.4 kg
[2022-07-05] MEDS: Morphine 4mg INJECTION 4 MG/ML INJ IV NR (17:28)
[2022-07-05] MEDS: ONDANSETRON HCL INJ 2MG/ML 2ML 2 MG/ML VIAL IV NR (17:29)
[2022-07-05] MEDS ORDERED: Morphine 4mg INJECTION 4 MG/ML INJ ONE (17:36)
[2022-07-05] MEDS ORDERED: ONDANSETRON HCL INJ 2MG/ML 2ML 2 MG/ML VIAL ONE (17:36)
[2022-07-05] MEDS ORDERED: ULTRAM 50MG50 MG PO (19:39)
== END 2022-07-05 20:10 | disposition home or self-care (01) ==
LOC: ER 16:24
DX: S40.011A Contusion of right shoulder, initial encounter (principal); S50.01XA Contusion of right elbow, initial encounter; S60.221A Contusion of right hand, initial encounter; S70.01XA Contusion of right hip, initial encounter; W01.0XXA Fall on same level from slipping, tripping and stumbling without subsequent striking against object, initial encounter; Y93.01 Activity, walking, marching and hiking; Y92.512 Supermarket, store or market as the place of occurrence of the external cause; I10 Essential (primary) hypertension; E78.5 Hyperlipidemia, unspecified; K21.9 Gastro-esophageal reflux disease without esophagitis; E78.00 Pure hypercholesterolemia, unspecified
CPT/HCPCS: 73030; 73060; 73080; 73090; 73100; 73120; 73502; 99284; J2270; J2405

== ENCOUNTER 2022-07-22 22:08 | Emergency (ER) | payer MEDICARE ==
[~2022-07-22] VITALS: Ht 152.4 cm; Wt 64.4 kg
[~2022-07-22 22:08] MED LIST changes: +ULTRAM 50MG50 MG PO
[2022-07-22 22:49] LABS: BASOPHILS % 0.1 % (0.0-1.0); EOSINOPHILS # (AUTO) 0.1 (0.0-0.4); EOSINOPHILS % 1.8 % (0.0-6.0); HEMATOCRIT 43.3 % (34.2-44.1); HEMOGLOBIN 13.7 g/dL (12.0-16.0); LYMPHOCYTES # (AUTO) 2.1 (1.0-3.2); LYMPHOCYTES % 28.8 % (18.0-39.1); MEAN CORPUSCULAR HEMOGLOBIN 30.9 pg (28-32); MEAN CORPUSCULAR HGB CONC 31.6 g/dL (31-35); MEAN CORPUSCULAR VOLUME 97.7 fL (81-99); MONOCYTES # (AUTO) 0.5 (0.2-0.8); MONOCYTES % 6.3 % (4.4-11.3); NEUTROPHILS # (AUTO) 4.5 (2.1-6.9); NEUTROPHILS % 62.6 % (38.7-80.0); PLATELET COUNT 275 x10e3/uL (140-360); RED BLOOD COUNT 4.43 x10e6/uL (3.6-5.1); RED CELL DISTRIBUTION WIDTH 12.3 % (11.7-14.4)
[2022-07-22 23:08] LABS: BLOOD UREA NITROGEN 26 mg/dL (7-26); BUN/CREATININE RATIO 33 (6-25); CALCIUM 9.5 mg/dL (8.4-10.2); CARBON DIOXIDE 25 mmol/L (22-29); CHLORIDE 105 mmol/L (98-107); CREATINE KINASE 30 IU/L (29-168); GLUCOSE 93 mg/dL (74-118); SODIUM 142 mmol/L (136-145)
[2022-07-23] MEDS ORDERED: HYDROCODON-ACE1 EA11 PO (01:13)
[2022-07-23] MEDS ORDERED: HYDROCODONE/APAP 5MG-325MG TAB PO ONE (01:15)
== END 2022-07-23 02:08 | disposition home or self-care (01) ==
LOC: ER 22:16
DX: S32.401A Unspecified fracture of right acetabulum, initial encounter for closed fracture (principal); S32.591A Other specified fracture of right pubis, initial encounter for closed fracture; R07.9 Chest pain, unspecified; M54.50 Low back pain, unspecified; I10 Essential (primary) hypertension; E78.5 Hyperlipidemia, unspecified; E78.00 Pure hypercholesterolemia, unspecified; W19.XXXA Unspecified fall, initial encounter
CPT/HCPCS: 36415; 71045; 80048; 82550; 82553; 84484; 85025; 93005; 99283

== ENCOUNTER 2022-09-11 16:44 | Outpatient (RCR) | payer MEDICARE ==
[~2022-09-11 16:44] MED LIST changes: +HYDROCODON-ACE1 EA11 PO
== END 2022-09-16 ==
LOC: PT 16:44
PROVIDERS: ATTEND Physician Assistant
DX: S32.592A Other specified fracture of left pubis, initial encounter for closed fracture (principal); S43.421A Sprain of right rotator cuff capsule, initial encounter

== ENCOUNTER 2022-10-13 16:59 | Outpatient (RCR) | payer MEDICARE | END 2022-10-14 | LOC: PT 16:59 | PROVIDERS: ATTEND Physician Assistant | DX: S32.592A Other specified fracture of left pubis, initial encounter for closed fracture (principal); S43.421A Sprain of right rotator cuff capsule, initial encounter ==

== ENCOUNTER 2022-10-16 07:49 | Outpatient (RCR) | payer MEDICARE | END 2022-11-14 | LOC: PT 07:49 | PROVIDERS: ATTEND Physician Assistant | DX: S32.592A Other specified fracture of left pubis, initial encounter for closed fracture (principal); S43.421A Sprain of right rotator cuff capsule, initial encounter ==

== ENCOUNTER → 2024-04-08 | Outpatient (REF) | payer MEDICARE | LOC: RAD 13:10 | PROVIDERS: ATTEND Internal Medicine | DX: M25.511 Pain in right shoulder (principal); M25.551 Pain in right hip ==

== ENCOUNTER 2025-02-06 11:12 | Emergency (ER) | payer MEDICARE ==
[~2025-02-06] VITALS: Ht 152.4 cm; Wt 64.4 kg
[2025-02-06 11:23] VITALS: PULSE 98; TEMP 98.4; O2SAT 97
[2025-02-06] MEDS: DEXAMETHASONE SOD PHOS INJ 4 MG/ML SDV IV ONE (12:20)
[2025-02-06] MEDS: DIPHENHYDRAMINE HCL INJ 50 MG/ML VIAL IV STA (12:20)
[2025-02-06] MEDS: FAMOTIDINE 20 MG/2 ML VIAL IV STA (12:20)
== END 2025-02-06 13:15 | disposition home or self-care (01) ==
LOC: ER 11:36
DX: R42 Dizziness and giddiness (principal); T63.441A Toxic effect of venom of bees, accidental (unintentional), initial encounter; Y92.89 Other specified places as the place of occurrence of the external cause; F41.9 Anxiety disorder, unspecified; F32.A Depression, unspecified; E78.5 Hyperlipidemia, unspecified; E78.00 Pure hypercholesterolemia, unspecified; K21.9 Gastro-esophageal reflux disease without esophagitis
CPT/HCPCS: 99283; J1100; J1200; J1308

== ENCOUNTER → 2025-03-27 | Day surgery (SDC) | payer MEDICARE ==
[2025-03-24 12:47] LABS: BASOPHILS % 0.3 % (0.0-1.0); EOSINOPHILS % 2.5 % (0.0-6.0); LYMPHOCYTES % 34.5 % (18.0-39.1); MONOCYTES % 7.0 % (4.4-11.3); NEUTROPHILS % 55.5 % (38.7-80.0); RED CELL DISTRIBUTION WIDTH 12.5 % (11.7-14.4)
[~2025-03-27] MED LIST changes: +ALENDRONATE SOD70 MG PO; +FENTANYL CITRATE/PF 100MCG/2 ML INJ ONE; +HYDRALAZINE HCL 20 MG/ML VIAL ONE; +HYOSCYAMINE SULFATE 0.5 MG/ML INJ ONE; +LACTATED RINGER'S 1,000 ML ONE; +LEXAPRO20 MG PO; +LIDOCAINE HCL 2% LOCAL INJ 5 ML SDV VIAL INJ ONE; +LIPITOR10 MG PO; +LOSARTAN POTASS25 MG PO; +METOCLOPRAMIDE HCL 10 MG/2ML VIAL ONE; +MIDAZOLAM HCL 2 MG/2 ML VIAL ONE; +ONDANSETRON HCL INJ 2MG/ML 2ML 2 MG/ML VIAL ONE; +PROPOFOL IV EMULSION 10 MG/ML 20 ML VIAL ONE; +PROPOFOL IV EMULSION 50 ML IV ONE
[2025-03-27 16:09] VITALS: TEMP 97.6
[2025-03-27 16:25] VITALS: BP 120/65; PULSE 76; RESP 16; O2SAT 95
== END | disposition home or self-care (01) ==
LOC: OR 12:48
PROVIDERS: ATTEND Internal Medicine Gastroenterology
DX: Z12.11 Encounter for screening for malignant neoplasm of colon (principal); K57.30 Diverticulosis of large intestine without perforation or abscess without bleeding; K64.8 Other hemorrhoids; Z86.0100 Personal history of colon polyps, unspecified; K21.00 Gastro-esophageal reflux disease with esophagitis, without bleeding; K29.50 Unspecified chronic gastritis without bleeding; I10 Essential (primary) hypertension; E78.00 Pure hypercholesterolemia, unspecified; M81.0 Age-related osteoporosis without current pathological fracture; F41.9 Anxiety disorder, unspecified; F32.A Depression, unspecified; Z79.899 Other long term (current) drug therapy; Z01.810 Encounter for preprocedural cardiovascular examination; Z01.812 Encounter for preprocedural laboratory examination
CPT/HCPCS: 43239; G0105; 36415; 45378; 85025; 93005; J0360; J1980; J2003; J2250; J2405; J2470; J2765

== ENCOUNTER → 2025-04-26 | Day surgery (SDC) | payer MEDICARE ==
[~2025-04-26] MED LIST changes: -FENTANYL CITRATE/PF 100MCG/2 ML INJ ONE; +GLUCAGON FOR INJ 1 MG VIAL ONE; -HYDRALAZINE HCL 20 MG/ML VIAL ONE; -LACTATED RINGER'S 1,000 ML ONE; -METOCLOPRAMIDE HCL 10 MG/2ML VIAL ONE; -MIDAZOLAM HCL 2 MG/2 ML VIAL ONE; -ONDANSETRON HCL INJ 2MG/ML 2ML 2 MG/ML VIAL ONE; -PROPOFOL IV EMULSION 50 ML IV ONE
[2025-04-26 10:26] VITALS: TEMP 97.7
[2025-04-26 10:50] VITALS: BP 146/81; PULSE 76; RESP 18; O2SAT 99
== END | disposition home or self-care (01) ==
LOC: OR 07:33
PROVIDERS: ATTEND Internal Medicine Gastroenterology
DX: Z09 Encounter for follow-up examination after completed treatment for conditions other than malignant neoplasm (principal); D12.2 Benign neoplasm of ascending colon; D12.3 Benign neoplasm of transverse colon; D12.5 Benign neoplasm of sigmoid colon; K57.30 Diverticulosis of large intestine without perforation or abscess without bleeding; K64.8 Other hemorrhoids; K29.60 Other gastritis without bleeding; I10 Essential (primary) hypertension; Z71.89 Other specified counseling; E78.5 Hyperlipidemia, unspecified; M81.0 Age-related osteoporosis without current pathological fracture; M19.90 Unspecified osteoarthritis, unspecified site; F41.9 Anxiety disorder, unspecified; F32.A Depression, unspecified; Z79.82 Long term (current) use of aspirin; Z79.899 Other long term (current) drug therapy; Z68.26 Body mass index [BMI] 26.0-26.9, adult; Z71.3 Dietary counseling and surveillance; Z91.81 History of falling
CPT/HCPCS: 45385; J1610; J1980; J2003; J2704; 45378